=== PATIENT | male | born 1975 | race Caucasian/White ===

== ENCOUNTER 2022-02-19 20:11 | Emergency (ER) | payer OTHER, SELFPAY ==
--- NOTE | 2022-02-19 20:16 | ED_ITS ---
HPI - Abdominal Pain General Chief Complaint: Flank Pain Stated Complaint: Kidney Stones Time Seen by Provider: 02/19/22 20:15 Source: patient, family and RN notes reviewed Mode of arrival: ambulatory Limitations: no limitations History of Present Illness HPI narrative: 47-year-old man presenting with spouse to the emergency department with complaint of right lower abdominal pain. Fairly abrupt onset about 2 hours ago. Has not really had an appetite but not related to any nausea; just says he has not felt like eating much. Sharp sort of pain but described more so in that just can not get comfortable. Sounds like a little trouble recognizing it but would not be atypical for how he is experience kidney stones in the past. They have also been right-sided. Last had kidney stone about 2 years ago which is also the time of his last imaging. Does have an underlying history of epilepsy and notes that medications around that time apparently were thought to have caused stones in quick succession. He has otherwise been well recently. No fever. No dysuria, affected stream or hematuria. Does still have his appendix. They had been traveling from [place] where they were doing a college visit. Drove about 4-1/2 hours today. Active in sports but he does not recall any injury. Not necessarily better with his hand deep in his side but notes that just to be something to do. When this pain initially occurred he thought that maybe he had had gas, may be needed to have a bowel movement. This was accomplished but did not change his pain. He also tried Tums with no effect. No history of urinary tract infection. Related Data Home Medications Medication Instructions Recorded Confirmed lacosamide .ROUTE 02/19/22 Previous Rx's Medication Instructions Recorded tamsulosin 0.4 mg capsule (Flomax) 0.4 mg PO DAILY #10 caps 02/19/22 Allergies Allergy/AdvReac Type Severity Reaction Status Date / Time carbamazepine Allergy Verified 02/19/22 20:23 Review of Systems Status of ROS Reports: 6 or more systems reviewed and unremarkable except as noted in History and below [facility] Social History Smoking Status: Never smoker Do you use any of these nicotine containing products: None How often do you have a drink containing alcohol: never How often do you have six or more drinks on one occasion: Never AUDIT-C Alcohol total score: 0 Non-prescribed substance use: denies use Exam Narrative: Exam Narrative: Pleasant. Tall man. Quite calm. Speaking easily. Breathing easily and chest with equal expansion excursion. Cranial nerves 2-12 intact Back is without percussive tenderness in the flanks. Abdomen is soft and mildly tender to palpation throughout the right lower abdomen. No peritoneal signs appreciated. Normoactive bowel sounds. Skin is warm and dry without apparent rash. Moving all extremities without difficulty. No edema. Well perfused peripherally. Const: Vital Signs, click to edit/add: Vital Signs - 24 hr 02/19/22 20:20 Temperature 97.8 F Pulse Rate [Left P ulse Oximeter] 63 Respiratory Rate 16 Blood Pressure [Le ft Upper Arm] 164/107 H Pulse Oximetry 99 Oxygen Delivery Me thod Room Air Documenting provider has reviewed patient's vital signs: yes Course Course Hospital Course: Exam and interview as above. He does not feel he needs anything for nausea. IV was established. He can wait for ketorolac to kick in he says. Was ordered for this and fluids. Labs are pending. Reevaluation(s) Reevaluation #1: Overall quite improved in discomfort. Vital Signs Vital signs: Initial Vital Signs Temperature 97.8 F 02/19/22 20:20 Temperature Source Temporal Artery Scan 02/19/22 20:20 Pulse Rate 63 02/19/22 20:20 Pulse Rhythm 02/19/22 20:20 Respiratory Rate 16 02/19/22 20:20 Blood Pressure 164/107 H 02/19/22 20:20 Blood Pressure Mean 126 02/19/22 20:20 Blood Pressure Position Sitting 02/19/22 20:20 Pulse Oximetry 99 02/19/22 20:20 Oxygen Delivery Method 02/19/22 20:20 Vital Signs Temperature 97.8 F 02/19/22 20:20 Pulse Rate 63 02/19/22 20:20 Respiratory Rate 16 02/19/22 20:20 Blood Pressure 164/107 H 02/19/22 20:20 Pulse Oximetry 99 02/19/22 20:20 Oxygen Delivery Method 02/19/22 20:20 Temperature 97.8 F 02/19/22 20:20 Pulse Rate 63 02/19/22 20:20 Respiratory Rate 16 02/19/22 20:20 Blood Pressure 164/107 H 02/19/22 20:20 Pulse Oximetry 99 02/19/22 20:20 Oxygen Delivery Method 02/19/22 20:20 MDM - Abdominal Pain MDM Narrative Medical decision making narrative: Given hematuria with white cells that I think are probably more inflammatory though will still culture the urine, we discussed imaging. With known history of nephrolithiasis, I think it would be acceptable to wait on imaging. Pain has been controlled. Their preference also is to defer and follow up as needed. Medical Records Attestation: I reviewed the patient's medical records. Lab Data Attestation: I reviewed the patient's lab results. Labs: Lab Results 02/19/22 02/19/22 02/19/22 Range/Units 20:20 20:20 20:45 Sodium 141 (135-149) mmol/L Potassium 4.4 (3.6-5.1) mmol/L Chloride 104 (96-114) mmol/L Carbon Dioxide 27 (20-32) mmol/L BUN 13 (5-24) mg/dL Creatinine 1.3 (0.5-1.5) mg/dL Estimated Creat Clear 83.43 Estimated GFR 69 ml/min Glucose 113 (60-115) mg/dL Calcium 9.3 (8.4-10.6) mg/dL Total Bilirubin 0.3 (0.1-1.5) mg/dL AST 44 H (12-35) U/L ALT 26 (4-50) U/L Alkaline Phosphatase 89 (40-150) U/L C-Reactive Protein < 0.5 L Cancelled (0.5-1.0) mg/dL Total Protein 7.3 (6.0-8.3) g/dL Albumin 4.8 (3.3-5.0) g/dL Urine Color Yellow (Yellow) Urine Appearance Cloudy A (Clear) Urine pH 7.5 (5.0-8.5) Ur Specific [place] 1.020 (1.000-1.030) Urine Protein Negative (Negative) Urine Glucose (UA) Negative (Negative) Urine Ketones Negative (Negative) Urine Blood 2+ A (Negative) Urine Nitrite Negative (Negative) Urine Bilirubin Negative (Negative) Urine Urobilinogen 0.2 (0.2-1.0) Ur Leukocyte Esterase Trace A (Negative) Urine RBC 10-25 A (0-2) Urine WBC 5-10 A (0-5) Ur Squamous Epith Cells Few (None-Few) Amorphous Sediment Moderate A (None) Urine Bacteria Few A (None) Discharge Plan Discharge Clinical Impression: Hematuria, Ureteral calculus, Abdominal pain Patient Disposition: Home w/ Parent or Adult Condition: Improved Additional Instructions: I agree that this is likely a kidney stone. A urine culture will be pending here and you will be contacted if something concerning is growing. In the meantime, can take up to 800 mg of ibuprofen per dose 3 to 4 times a day ideally with a little bit of food. This can be combined with Percocet or with acetaminophen. Remember that each tablet of Percocet has 325 mg of acetaminophen in it and you can take up to 1000 mg of acetaminophen per dose. Take the Flomax daily for potential relief of ureteral spasm until stone passage. Be evaluated in 5 days if pain still present. Be seen otherwise for marked increase in persistent pain, fever, repeated vomiting. Strain your urine over this next week. Hydrate. Prescriptions: New tamsulosin [Flomax] 0.4 mg capsule 0.4 mg PO DAILY Qty: 10 1RF No Action lacosamide .ROUTE Stand Alone Forms: [facility] Info Instructions
[2022-02-19 20:20] VITALS: BP 164/107; PULSE 63; RESP 16; TEMP 36.6; O2SAT 99; BMI 28.2
[2022-02-19] MEDS: 0.9 % SODIUM CHLORIDE 1000 ml 1,000 ML IV (20:35)
[2022-02-19] MEDS: KETOROLAC 15 MG/ML inj 30 MG IVP (20:40)
[2022-02-19 20:53] LABS: Appearance Urine Cloudy (Clear); Bilirubin Urine Negative (Negative); Blood Urine 2+ (Negative); Color Urine Yellow (Yellow); Glucose Urine Negative (Negative); Ketones Urine Negative (Negative); Leukocyte Esterase Urine Trace (Negative); Nitrite Urine Negative (Negative); Protein Urine Negative (Negative); Urobilinogen Urine 0.2 (0.2-1.0); pH Urine 7.5 (5.0-8.5)
[2022-02-19 21:05] LABS: Bacteria Urine Few; Squamous Epithelial Cell Urine Few (None-Few)
[2022-02-19 21:06] LABS: Amorphous Sediment Urine Moderate
[2022-02-19 21:12] LABS: Albumin* 4.8 g/dL (3.3-5.0); Chloride* 104 mmol/L (96-114); Sodium* 141 mmol/L (135-149)
[2022-02-19 21:13] LABS: Potassium* 4.4 mmol/L (3.6-5.1)
--- NOTE | 2022-02-19 21:14 | ED.NURSE ---
pt asking to take regularly schedule seizure med. agrees pt that he nay take his own.
[2022-02-19 21:16] LABS: Alanine Aminotransferase* 26 U/L (4-50); Alkaline Phosphatase* 89 U/L (40-150); Aspartate Amino Transferase* 44 U/L (12-35); Bilirubin Total* 0.3 mg/dL (0.1-1.5); Blood Urea Nitrogen* 13 mg/dL (5-24); Calcium* 9.3 mg/dL (8.4-10.6); Carbon Dioxide* 27 mmol/L (20-32); Creatinine* 1.3 mg/dL (0.5-1.5); Est. Creatinine Clearance* 83.43; Estimated Glomerular Filt Rate 69 ml/min; Glucose* 113 mg/dL (60-115); Total Protein* 7.3 g/dL (6.0-8.3)
[2022-02-19 21:23] LABS: C Reactive Protein* < 0.5 mg/dL (0.5-1.0)
[2022-02-19] MEDS: TAMSULOSIN HCL 0.4 MG CAPSULE PO (22:14)
== END 2022-02-19 22:27 | disposition home or self-care (01) ==
PROVIDERS: Emergency Provider Family Medicine
DX: R31.9 Hematuria, unspecified (principal); R10.9 Unspecified abdominal pain; Z87.442 Personal history of urinary calculi
CPT/HCPCS: 36415; 80053; 81003; 81015; 86140; 87086; 96374; 99283; 99284; A9270; J1885; J7030